=== PATIENT | female | born 1985 | race Caucasian/White ===

== ENCOUNTER 2020-09-29 13:47 | Emergency (ER) | payer BC ==
[~2020-09-29] VITALS: Ht 165.1 cm; Wt 100.0 kg
[2020-09-29 14:36] LABS: BASOPHILS # (AUTO) 0.1 X10'3 (0-0.2); BASOPHILS % (AUTO) 0.8 % (0-1); EOSINOPHILS # (AUTO) 0.1 X10'3 (0-0.9); HEMATOCRIT 35.7 % (35.0-45.0); HEMOGLOBIN 11.4 g/dl (12.0-16.0); LYMPHOCYTES # (AUTO) 1.2 X10'3 (1.1-4.8); LYMPHOCYTES % (AUTO) 18.2 % (21-51); MEAN CORPUSCULAR HEMOGLOBIN 24.7 PG (27.0-31.0); MEAN CORPUSCULAR VOLUME 77.1 FL (78-98); MEAN PLATELET VOLUME 8.1 FL (7.4-10.4); MONOCYTES # (AUTO) 0.4 X10'3 (0-0.9); MONOCYTES % (AUTO) 5.2 % (2-12); NEUTROPHILS # (AUTO) 5.1 X10'3 (1.8-7.7); NEUTROPHILS % (AUTO) 74.8 % (42-75); PLATELET COUNT 292 X10'3 (140-440); RED BLOOD COUNT 4.63 X10'6 (4.20-5.60); RED CELL DISTRIBUTION WIDTH 15.8 % (11.5-14.5); WHITE BLOOD COUNT 6.8 X10'3 (4.5-11.0)
[2020-09-29 14:51] LABS: ALANINE AMINOTRANSFERASE 22 U/L (12-78); ALBUMIN 3.8 G/DL (3.4-5.0); ALBUMIN/GLOBULIN RATIO 1.1 (1.1-1.5); ALKALINE PHOSPHATASE 81 IU/L (46-116); ANION GAP 11 (8-16); ASPARTATE AMINO TRANSFERASE 19 U/L (10-37); BILIRUBIN,TOTAL 0.6 MG/DL (0.1-1.0); BLOOD UREA NITROGEN 12 MG/DL (7-18); BUN/CREATININE RATIO 12.2 (6.6-38.0); CALCIUM 8.9 MG/DL (8.5-10.1); CHLORIDE 108 MMOL/L (99-107); CREATININE 0.98 MG/DL (0.40-0.90); GLUCOSE 91 MG/DL (70-104); LIPASE 146 U/L (73-393); POTASSIUM 3.8 MMOL/L (3.5-5.1); SODIUM 144 MMOL/L (135-145); TOTAL CARBON DIOXIDE 25.4 MMOL/L (24-32); TOTAL PROTEIN 7.4 G/DL (6.4-8.2); eGFR 65 ML/MIN
[2020-09-29 15:04] LABS: CLARITY,URINE CLEAR (Clear); COLOR,URINE YELLOW (Yellow); GLUCOSE, URINE NEGATIVE (Neg); KETONES,URINE NEGATIVE (Neg); LEUKOCYTE ESTERASE ,URINE NEGATIVE (Neg); NITRITES, URINE NEGATIVE (Neg); OCCULT BLOOD,URINE TRACE-INTACT (Neg); PH,URINE 6.5 (4.8-8.0); PROTEIN,URINE NEGATIVE (Neg); UROBILINOGEN,URINE 0.2 E.U/dL (0.2-1.0)
[2020-09-29 15:05] LABS: URINE HCG NEGATIVE (NEG)
[2020-09-29 15:08] LABS: UA COLLECTION TYPE CLN CATCH MIDSTREAM
[2020-09-29 15:09] LABS: BACTERIA,URINE FEW /HPF (Neg); RBC,URINE 0-2 /HPF (0-2); SQUAMOUS EPITHELIAL CELL,UR MANY /LPF (FEW); WBC,URINE 0-4 /HPF (0-4)
[2020-09-29 15:10] LABS: MUCUS STRANDS FEW /LPF (Neg)
--- NOTE | 2020-09-29 15:19 | NUR ---
RELIEVING RN FOR BREAK, DR CARRILLO AND Kayla ADDISON AT BEDSIDE TO EVALUATE PT, PT C/O RT SIDED FACIAL DROOP X2 DAYS, PT IS ALERT AND ORIENTED, RESP EVEN AND UNLABORED, SKIN P/W/D Addendum: 09/29/20 at 1523 by CAMERONOGASofi CHART CORRECTIONS, "LEFT SIDED FACIAL DROOP" ON ABOVE NOTE I MADE
[2020-09-29] MEDS ORDERED: PRED20TA PO (15:57)
[2020-09-29 16:07] VITALS: BP 106/60
== END 2020-09-29 16:09 | disposition home or self-care (01) ==
LOC: ER 13:48
DX: G51.0 Bell's palsy (principal); E03.9 Hypothyroidism, unspecified; Z79.899 Other long term (current) drug therapy
CPT/HCPCS: 36415; 80053; 81001; 81025; 83690; 85025; 93005; 99284